=== PATIENT | male | born 1990 | race Caucasian/White ===

== ENCOUNTER 2022-03-14 18:17 | Emergency (ER) | payer SELFPAY ==
[~2022-03-14] VITALS: Ht 175.3 cm; Wt 124.0 kg
[2022-03-14 23:43] LABS: BASOPHILS % 0.8 % (0.0-2.0); EOSINOPHILS % 3.6 % (0.0-5.0); LYMPHOCYTES % 42.2 % (20.0-50.0); MEAN CORPUSCULAR HEMOGLOBIN 29.9 pg (28.0-32.0); MEAN CORPUSCULAR VOLUME 87.9 fL (80.0-94.0); MEAN PLATELET VOLUME 9.9 fl (7.4-10.4); MONOCYTES % 8.5 % (2.0-8.0); NEUTROPHILS % 44.9 % (40.0-76.0); PLATELET 213 x1000/uL (130-400)
[2022-03-14 23:50] LABS: CHLORIDE 106 mEq/L (98-107)
[2022-03-15] MEDS ORDERED: ONDANSETRON HCL 4MG/2ML INJ IV STA (01:01)
[2022-03-15] MEDS ORDERED: KETOROLAC 30MG/ML VIAL IV STA (01:01)
[2022-03-15] MEDS ORDERED: SODIUM CHLORIDE 0.9% 1,000 ML IV ONE (01:15)
[2022-03-15] MEDS ORDERED: PROT40 MT (03:09)
[2022-03-15] MEDS ORDERED: ONDA4TAB5 MT (03:09)
[2022-03-15 03:32] VITALS: BP 134/82
[2022-03-15 03:38] LABS: CLARITY URINE CLEAR (CLEAR); COLOR URINE DARK YELLOW (YELLOW); KETONES URINE TRACE (NEGATIVE); LEUKOCYTE ESTERASE URINE NEGATIVE (NEGATIVE); NITRITE URINE NEGATIVE (NEGATIVE); OCCULT BLOOD URINE NEGATIVE (NEGATIVE); PH URINE 5.5 (4.5-8.0); PROTEIN URINE TRACE (NEGATIVE); SPECIFIC GRAVITY URINE 1.028 (1.005-1.030)
[2022-03-15 03:51] LABS: *AMPHETAMINES SCREEN URINE NEGATIVE (NEGATIVE); *BARBITURATES SCREEN URINE NEGATIVE (NEGATIVE); *BENZODIAZEPINES SCREEN URINE NEGATIVE (NEGATIVE); *COCAINE SCREEN URINE NEGATIVE (NEGATIVE); CANNABINOID URINE SCREEN NEGATIVE (NEGATIVE); METHADONE URINE SCREEN NEGATIVE (NEGATIVE); OPIATES URINE SCREEN NEGATIVE (NEGATIVE); PHENCYCLIDINE URINE SCREEN NEGATIVE (NEGATIVE)
== END 2022-03-15 03:34 | disposition home or self-care (01) ==
LOC: ER 18:17
DX: I10 Essential (primary) hypertension (principal); R74.01 Elevation of levels of liver transaminase levels; K76.0 Fatty (change of) liver, not elsewhere classified; R10.10 Upper abdominal pain, unspecified
CPT/HCPCS: 36415; 76700; 80053; 80305; 80320; 81003; 83690; 85025; 96361; 96374; 96375; 99284; J1885; J2405; J7030; G0480